=== PATIENT | female | born 1955 | race Two or more races ===

== ENCOUNTER 2025-05-14 15:16 | Emergency (ER) | payer OTHER ==
[~2025-05-14] VITALS: Ht 165.1 cm; Wt 85.3 kg
[~2025-05-14 15:16] MED LIST: ATENOLOL50 MG PO; CYMBALTA20 MG PO; LYRICA50 MG PO; NORFLEX100MG PO
[2025-05-14] MEDS ORDERED: COZAAR25 MG PO (15:42)
[2025-05-14 15:43] VITALS: BP 123/82; O2SAT 95
[2025-05-14] MEDS ORDERED: 0.9 % SODIUM CHLORIDE 1,000 ML IV ONE (16:00)
[2025-05-14] MEDS ORDERED: MORPHINE SULFATE 4 MG/ML CARTRIDGE IV ONE (16:15)
[2025-05-14 16:34] LABS: BASO % 1.1 % (0.1-1.2); EOS # 0.18 (0.04-0.54); EOS % 2.1 % (0.7-7.0); LYMPH # 2.62 (1.18-3.74); LYMPH % 30.6 % (19.3-53.1); MEAN PLATELET VOLUME 10.40 fl (9.4-12.4); MONO # 0.74 (0.24-0.82); MONO % 8.7 % (4.7-12.5); NEUT # 4.91 (1.56-6.13); NEUT % 57.4 % (34.0-71.1); RED CELL DISTRIBUTION WIDTH 13.0 % (11.6-14.4)
[2025-05-14 17:25] LABS: URINE APPEARANCE Cloudy; URINE BILIRRUBIN Negative (NEGATIVE); URINE BLOOD Negative; URINE COLOR Yellow; URINE GLUCOSE Negative (NEGATIVE); URINE KETONE Negative (NEGATIVE); URINE LEUKOCYTE Small; URINE NITRATE Positive; URINE PROTEIN Negative (NEGATIVE); URINE UROBILINOGEN 1.0 E.U./dl
[2025-05-14 17:26] LABS: URINE EPITHELIAL CELLS 7.9 uL (0.0-38.8); URINE RBC 17.7 uL (0.0-20.8); URINE WBC 68.0 uL (0.0-23.2)
[2025-05-14 17:39] LABS: ALT/SGPT 26.0 U/L (12-78); AST/SGOT 18.0 U/L (15-37); BILIRUBIN TOTAL 0.72 mg/dL (0.3-1.2); BUN CREA RATIO 14.0 (7.0-25.0); CREATININE SERUM 0.93 mg/dL (0.55-1.02); GFR 59.95; GLOBULINA 3.6 G/DL (2.4-3.5); GLUCOSE FASTING 94.0 mg/dL (65-100); OSMOLALITY SERUM 277.0 MOSM/KG (275-295)
[2025-05-14 17:40] LABS: URINE BACTERIA > 9821.5 uL (0.0-1933); URINE CAST 0.29 uL (0.0-1.40)
[2025-05-14] MEDS ORDERED: PIPERACILLIN/TAZOBACTAM SODIUM 3.375 GM VIAL IV ONE ×2 (18:15)
[2025-05-14] MEDS ORDERED: PERCOGESIC EXT1 EACH PO (18:55)
[2025-05-14] MEDS ORDERED: AMOX-CLAV 875-1 EACH PO (18:55)
[2025-05-14] MEDS ORDERED: PEPCID AC20 MG PO (18:55)
[2025-05-14] MEDS ORDERED: INTESTINEX680 M1 PO (18:55)
== END 2025-05-14 19:40 ==
LOC: ER 15:16
PROVIDERS: General Practice
DX: N39.0 Urinary tract infection, site not specified (principal); R10.A2 Flank pain, left side; R30.0 Dysuria; Z88.2 Allergy status to sulfonamides; Z88.8 Allergy status to other drugs, medicaments and biological substances; K63.89 Other specified diseases of intestine; B96.29 Other Escherichia coli [E. coli] as the cause of diseases classified elsewhere; Z16.39 Resistance to other specified antimicrobial drug; K57.30 Diverticulosis of large intestine without perforation or abscess without bleeding; I10 Essential (primary) hypertension; E03.8 Other specified hypothyroidism; E06.3 Autoimmune thyroiditis; M41.80 Other forms of scoliosis, site unspecified

== ENCOUNTER → 2025-07-18 | Emergency (ER) | payer OTHER ==
[~2025-07-18] VITALS: Ht 162.6 cm; Wt 86.2 kg
[~2025-07-18] MED LIST changes: +8HR ARTHRITIS650 M1 PO; +ACETAMINOPHEN 500 MG GEL..CAP PO ONE; +AMOX-CLAV 875-1 EACH PO; +COZAAR25 MG PO; +FAMOTIDINE/PF 20 MG in 0.9 % SODIUM CHLORIDE 8 ML IV PUSH ONE; +INTESTINEX680 M1 PO; +ORPHENADRINE CITRATE 30 MG/ML AMPUL IM ONE; +PEPCID AC20 MG PO; +PERCOGESIC EXT1 EACH PO
[2025-07-18 15:27] VITALS: BP 133/84; O2SAT 97
[2025-07-18 16:54] LABS: BASO % 0.8 % (0.1-1.2); EOS # 0.24 (0.04-0.54); EOS % 3.1 % (0.7-7.0); LYMPH # 2.35 (1.18-3.74); LYMPH % 30.3 % (19.3-53.1); MEAN PLATELET VOLUME 9.90 fl (9.4-12.4); MONO # 0.77 (0.24-0.82); MONO % 9.9 % (4.7-12.5); NEUT # 4.32 (1.56-6.13); NEUT % 55.6 % (34.0-71.1); RED CELL DISTRIBUTION WIDTH 13.0 % (11.6-14.4)
[2025-07-18 17:18] LABS: INR 1.0
[2025-07-18 17:25] LABS: ALT/SGPT 77.0 U/L (12-78); AST/SGOT 33.0 U/L (15-37); BILIRUBIN TOTAL 0.81 mg/dL (0.3-1.2); BUN CREA RATIO 15.0 (7.0-25.0); CREATININE SERUM 0.74 mg/dL (0.55-1.02); GFR 78.04; GLOBULINA 3.5 G/DL (2.4-3.5); GLUCOSE FASTING 103.0 mg/dL (65-100); OSMOLALITY SERUM 283.0 MOSM/KG (275-295)
== END | disposition home or self-care (01) ==
LOC: ER 14:30
PROVIDERS: General Practice
DX: I10 Essential (primary) hypertension (principal); G44.209 Tension-type headache, unspecified, not intractable; E03.9 Hypothyroidism, unspecified; Z88.2 Allergy status to sulfonamides; Z88.8 Allergy status to other drugs, medicaments and biological substances